=== PATIENT | female | born 1965 | race Caucasian/White ===

== ENCOUNTER 2022-09-19 15:11 | Emergency (ER) | payer OTHER ==
[~2022-09-19] VITALS: Ht 154.9 cm; Wt 88.9 kg
[~2022-09-19 15:11] MED LIST: BUPR75TA; FERR325E14 PO; PANT40EC PO; VIC PO; ZOLP10TA1
[2022-09-19 15:18] VITALS: BP 115/60
--- NOTE | 2022-09-19 17:16 | NUR ---
PATIENT AMULATORY TO BED 9
--- NOTE | 2022-09-19 17:27 | NUR ---
Patient being evaluated by physician at bedside.
[2022-09-19] MEDS ORDERED: ACET-8905 PO (18:08)
[2022-09-19] MEDS ORDERED: ONDA8TAB87 PO (18:08)
[2022-09-19 18:56] VITALS: BP 130/77
--- NOTE | 2022-09-19 18:56 | NUR ---
Patient discharged with v/s stable. Written and verbal after care instructions given. Patient alert, oriented and verbalized understanding of instructions. Ambulatory with steady gait. All questions addressed prior to discharge. ID band removed. Patient advised to follow up with PMD. Rx of Hydrocodone-Acetaminophen and Zofran given. Opportunity to ask questions provided and answered.
== END 2022-09-19 18:56 | disposition home or self-care (01) ==
LOC: MED 15:11
DX: R07.89 Other chest pain (principal); R05.9 Cough, unspecified; E11.9 Type 2 diabetes mellitus without complications; I10 Essential (primary) hypertension; Z79.4 Long term (current) use of insulin; Z79.899 Other long term (current) drug therapy; Z90.49 Acquired absence of other specified parts of digestive tract; Z90.710 Acquired absence of both cervix and uterus
CPT/HCPCS: 93005; 99283

== ENCOUNTER 2023-05-08 14:40 | Emergency (ER) | payer OTHER ==
[~2023-05-08] VITALS: Ht 154.9 cm; Wt 90.8 kg
[~2023-05-08 14:40] MED LIST changes: +ACET-8905 PO; +ONDA8TAB87 PO
[2023-05-08 15:04] VITALS: BP 120/69; PULSE 78; RESP 20; TEMP 98; O2SAT 96
[2023-05-08 15:38] LABS: BASOPHILS % (AUTO) 0.5 % (0.0-2.0); EOSINOPHILS # (AUTO) 0.1 K/uL (0-0.4); EOSINOPHILS % (AUTO) 0.9 % (0.0-4.0); HEMATOCRIT 38.5 % (36-48); HEMOGLOBIN 13.3 g/dL (12.0-16.0); LYMPHOCYTES % (AUTO) 29.7 % (20.5-51.1); MEAN CORPUSCULAR HEMOGLOBIN 31 pg (27-31); MEAN CORPUSCULAR HGB CONC 34 g/dL (33-37); MEAN CORPUSCULAR VOLUME 88.7 fL (80-94); MONOCYTES # (AUTO) 0.6 K/uL (0.8-1.0); MONOCYTES % (AUTO) 6.1 % (1.7-9.3); NEUTROPHILS # (AUTO) 6.4 K/uL (1.8-7.7); NEUTROPHILS % (AUTO) 62.8 % (42.2-75.2); PLATELET COUNT (AUTO) 288 K/uL (140-450); RED BLOOD CELL COUNT(AUTO) 4.34 MIL/uL (4.20-5.40); RED CELL DISTRIBUTION WIDTH 14.4 % (11.6-13.7); WHITE BLOOD COUNT (AUTO) 10.3 K/uL (4.8-10.8)
[2023-05-08 15:52] LABS: ALBUMIN 3.6 g/dL (3.4-5.0); ANION GAP 9.7 (8-16); CALCIUM 8.7 mg/dL (8.5-10.1); CARBON DIOXIDE 29.9 mmol/L (21-32); CREATININE 0.7 mg/dL (0.6-1.3); POTASSIUM 3.6 mmol/L (3.5-5.1); TOTAL BILIRUBIN 0.3 mg/dL (0.0-1.0); TOTAL PROTEIN, SERUM 8.3 g/dL (6.4-8.2)
[2023-05-08 15:55] LABS: APPEARANCE,URINE CLEAR (CLEAR); BILIRUBIN,URINE NEGATIVE (NEGATIVE); BLOOD, URINE NEGATIVE (NEGATIVE); COLOR,URINE YELLOW (YELLOW); LEUKOCYTE ESTERASE ,URINE NEGATIVE (NEGATIVE); NITRITE, URINE NEGATIVE (NEGATIVE); PROTEIN,URINE NEGATIVE (NEGATIVE); UGLUCOSE NEGATIVE (NEGATIVE); UROBILINOGEN,URINE 0.2 EU/dL (0.2 - 1)
[2023-05-08] MEDS ORDERED: oxyCODONE/APAP 5/325 MG 1 TAB TAB PO ONE (17:35)
[2023-05-08 18:06] VITALS: BP 135/80; PULSE 70; RESP 16; TEMP 98; O2SAT 99
== END 2023-05-08 18:06 | disposition home or self-care (01) ==
LOC: MED 14:40
DX: R10.9 Unspecified abdominal pain (principal); R11.0 Nausea; E11.9 Type 2 diabetes mellitus without complications; I10 Essential (primary) hypertension; Z79.4 Long term (current) use of insulin; Z79.899 Other long term (current) drug therapy
CPT/HCPCS: 36415; 80053; 81003; 83690; 85025; 99284